=== PATIENT | female | born 1945 ===

== ENCOUNTER → 2022-06-07 | Outpatient (CLI) | payer BC ==
[2022-06-07 16:40] LABS: Source, Urine Clean Catch
[2022-06-07 17:23] LABS: Appearance, Urine Clear (Clear); Bilirubin, Urine Neg (Neg); Blood, Urine Neg (Neg); Color, Urine Yellow (P-Yellow); Glucose Qualitative, Urine Neg (Neg); Ketones, Urine Neg (Neg); Leukocyte Esterase, Urine Neg (Neg); Nitrite, Urine Neg (Neg); Protein, Urine Neg (Neg); Specific Gravity, Urine 1.015 (1.003-1.022); Urobilinogen, Urine NORM (Normal)
== END | disposition home or self-care (01) ==
LOC: LAB 16:39 → LAB SHORT 16:39 → EDSTATUS 06-07 12:10 → LAB FUT 06-07 12:10
PROVIDERS: Internal Medicine
DX: R35.0 Frequency of micturition (principal)
CPT/HCPCS: 81003

== ENCOUNTER → 2022-12-26 | Outpatient (CLI) | payer BC ==
[2022-12-27 12:21] LABS: C DIFFICILE DNA NEGATIVE (Negative)
== END ==
LOC: LAB SHORT 21:15 → LAB 21:15
PROVIDERS: Physician Assistant
DX: R19.7 Diarrhea, unspecified (principal)
CPT/HCPCS: 87015; 87045; 87046; 87205; 87493; 87899

== ENCOUNTER → 2022-12-31 | Outpatient (CLI) | payer BC ==
[2022-12-31 14:56] LABS: Adenovirus F 40/41 Not Detected (NOT DETECT); Astrovirus Not Detected (NOT DETECT); Campylobacter Sp Not Detected (NOT DETECT); Cryptosporidium Not Detected (NOT DETECT); Cyclospora Cayetanensis Not Detected (NOT DETECT); E. Coli O157 Not Detected (NOT DETECT); Entamoeba Histolytica Not Detected (NOT DETECT); Enteroaggregative E. coli-EAEC Not Detected (NOT DETECT); Enteropathogenic E. coli-EPEC Not Detected (NOT DETECT); Enterotoxigenic E. coli-ETEC Not Detected (NOT DETECT); Giardia Lamblia Not Detected (NOT DETECT); Norovirus GI/GII Not Detected (NOT DETECT); Plesiomonas Shigelloides Not Detected (NOT DETECT); Rotavirus A Not Detected (NOT DETECT); Salmonella Sp Not Detected (NOT DETECT); Sapovirus Not Detected (NOT DETECT); Shiga Toxin-prod E. coli-STEC Not Detected (NOT DETECT); Shigella/Enteroin E. coli-EIEC Not Detected (NOT DETECT); Vibrio Cholerae Not Detected (NOT DETECT); Vibrio Sp Not Detected (NOT DETECT); Yersinia Enterocolitica Not Detected (NOT DETECT)
== END | disposition home or self-care (01) ==
LOC: LAB 01:35 → LAB SHORT 01:35
PROVIDERS: Internal Medicine
DX: R19.7 Diarrhea, unspecified (principal)
CPT/HCPCS: 87507

== ENCOUNTER 2023-11-28 08:11 | Day surgery (SDC) | payer BC ==
[~2023-11-28] VITALS: Ht 162.6 cm; Wt 59.2 kg
[~2023-11-28 08:11] MED LIST: Lactated Ringer's 0 ML IV ONE; propofoL 0 ML IV ONE
[2023-11-28] MEDS ORDERED: AMLO5 (08:39)
[2023-11-28] MEDS ORDERED: DIETARY SUPPLEMENT (08:40)
[2023-11-28] MEDS ORDERED: LEVE500 (08:40)
[2023-11-28] MEDS ORDERED: CARBATROL300 M1 (08:40)
[2023-11-28] MEDS ORDERED: ESTRIOL (08:40)
[2023-11-28] MEDS ORDERED: POTA10T (08:41)
[2023-11-28] MEDS ORDERED: OLMESARTAN MEDOX5 MG (08:41)
[2023-11-28] MEDS ORDERED: MULVITA (08:41)
[2023-11-28] MEDS ORDERED: PROG100 (08:41)
[2023-11-28] MEDS ORDERED: Dyazide 37.5-21 EACH (08:42)
--- NOTE | 2023-11-29 10:37 | NUR ---
11/29/23 ODILON SANCHEZ CASE CXD PER D/T NIK PREP. PT TO RESCHEDULE W OFFICE. [email or web address].RDS
== END 2023-11-28 09:06 | disposition home or self-care (01) ==
LOC: ORSCSDS 08:11
DX: Z12.11 Encounter for screening for malignant neoplasm of colon (principal); Z53.9 Procedure and treatment not carried out, unspecified reason
CPT/HCPCS: J2704; J7120

== ENCOUNTER 2024-01-16 08:43 | Day surgery (SDC) | payer BC ==
[~2024-01-16] VITALS: Ht 162.6 cm; Wt 57.4 kg
[~2024-01-16 08:43] MED LIST changes: +AMLO5; +CARBATROL300 M1; +DIETARY SUPPLEMENT; +Dyazide 37.5-21 EACH; +ESTRIOL; +LEVE500; -Lactated Ringer's 0 ML IV ONE; +Lactated Ringer's 1,000 ML IV ONE; +MULVITA; +OLMESARTAN MEDOX5 MG; +POTA10T; +PROG100; -propofoL 0 ML IV ONE; +propofoL 40 ML IV ONE
[2024-01-16] MEDS ORDERED: Lactated Ringer's 1,000 ML IV ONE (09:42)
[2024-01-16 11:13] VITALS: BP 106/65
== END 2024-01-16 11:12 | disposition home or self-care (01) ==
LOC: ORSCSDS 08:43
PROVIDERS: Surgery
PROC: 0DJD8ZZ Inspection of Lower Intestinal Tract, Via Natural or Artificial Opening Endoscopic (ICD-10-PCS; principal; 2024-01-16 09:45)
DX: Z12.11 Encounter for screening for malignant neoplasm of colon (principal); I10 Essential (primary) hypertension; Z79.899 Other long term (current) drug therapy
CPT/HCPCS: J2704; J7120

== ENCOUNTER 2024-08-06 17:24 | Emergency (ER) | payer OTHER, BC ==
[~2024-08-06] VITALS: Ht 162.6 cm; Wt 57.1 kg
[~2024-08-06 17:24] MED LIST changes: -Lactated Ringer's 1,000 ML IV ONE; -propofoL 40 ML IV ONE
[2024-08-06 17:38] VITALS: BP 167/87
[2024-08-06] MEDS ORDERED: HYDR1TAB94 PO (18:07)
== END 2024-08-06 18:25 | disposition home or self-care (01) ==
LOC: ER 17:24
DX: S42.212A Unspecified displaced fracture of surgical neck of left humerus, initial encounter for closed fracture (principal); W01.0XXA Fall on same level from slipping, tripping and stumbling without subsequent striking against object, initial encounter; Z88.2 Allergy status to sulfonamides; Z88.8 Allergy status to other drugs, medicaments and biological substances; Z91.048 Other nonmedicinal substance allergy status; Z79.899 Other long term (current) drug therapy
CPT/HCPCS: 73060; 99283-25